=== PATIENT | male | born 1955 | race Asian ===

== ENCOUNTER → 2019-12-22 07:52 | Outpatient (CLI) | payer BC, SELFPAY ==
--- NOTE | ~2019-12-22 | US_ITS ---
EXAMINATION: US abdomen complete EXAM DATE: 12/22/2019 08:23 INDICATION: Gallbladder polyp, hepatic steatosis. TECHNIQUE: Multiple grayscale and Doppler images of the complete abdomen were obtained (by a technolo gist who performed the scan) and subsequently reviewed. There is no prior study for comparison. FINDINGS: The abdominal aorta is normal in caliber. Visualized portion IVC is patent. The pancreatic head a nd body are normal in appearance. The pancreatic tail is not visualized. The liver has normal echogenicity and contour. There are no focal liver lesions identified. There is no evidence of intrahepatic biliary duct dilation. Portal venous flow was seen in the hepatopedal , normal direction and has normal Doppler waveform. Common bile duct measures 5 mm, which is normal. The gallbladder wall is normal in thickness, with ex pected amount of distention. No sonographic evidence of pericholecystic fluid. There is a gallbladd er polyp measuring 7 x 6 x 6 mm. Technologist performing exam reports patient did not demonstrate so nographic Negro's sign. Please note that this sign is less reliable in patients who have received p ain medication. Right kidney: There is normal contour and echogenicity. It measures 11.9 x 5.3 x 6.1 centimeters. There are no focal renal lesions identified. There is no hydronephrosis. Left kidney: There is normal contour and echogenicity. It measures 10.8 x 6.0 x 6.9 centimeters. Th ere is a 1.5 cm exophytic cyst. There is no hydronephrosis. The spleen measures 8.5 centimeters and is morphologically normal. IMPRESSION: Small gallbladder polyp most likely benign; consider 6-12 month follow-up ultrasound. Reviewed, dictated and finalized at location A. K MACHINE OPERATOR IMPRESSION: Small gallbladder polyp most likely benign; consider 6-12 month fol low-up ultrasound.
== END ==
PROVIDERS: PCP Emergency Medicine; Visit Provider Emergency Medicine
DX: R91.1 Solitary pulmonary nodule (principal); K76.0 Fatty (change of) liver, not elsewhere classified; K82.4 Cholesterolosis of gallbladder
CPT/HCPCS: 76700

== ENCOUNTER → 2020-10-11 08:28 | Outpatient (CLI) | payer BC, SELFPAY ==
--- NOTE | ~2020-10-11 | US_ITS ---
EXAMINATION: US soft tissue head and neck EXAM DATE: 10/11/2020 09:18 INDICATION: Lymphadenopathy . TECHNIQUE: Multiple grayscale and Doppler images of the neck soft tissue were obtained (by a technolo coco who performed the scan) and subsequently reviewed. There is no prior study for comparison. FINDINGS: There are internal jugular chain lymph nodes which are within normal size limits, largest on the righ t side measuring 1.6 x 0.5 x 1.1 cm. Probably reactive. No other mass identified. IMPRESSION: 1. Internal jugular chain lymph nodes within normal size limits. Reviewed, dictated and finalized at location B. RPRISE RESOURCE PLANNING CONSULTANT
--- NOTE | ~2020-10-11 | US_ITS ---
EXAMINATION: US abdomen limited EXAM DATE: 10/11/2020 09:18 INDICATION: Cholesterolosis of gallbladder. TECHNIQUE: Multiple grayscale and Doppler images of the abdomen right upper quadrant were obtained (b y a technologist who performed the scan) and subsequently reviewed. There is no prior study for jennifer ortega. FINDINGS: The pancreatic head and body are normal in appearance. The pancreatic tail is not visualized. The l iver has normal echogenicity and contour. There are no focal liver lesions identified. There is no evidence of intrahepatic biliary duct dilation. Portal venous flow was seen in the hepatopedal, nor mal direction and has normal Doppler waveform. No right-sided hydronephrosis. Right renal parenchyma l calcification versus kidney stone. Common bile duct measures 5 mm, which is normal. The gallbladder wall is normal in thickness, with ex pected amount of distention. No sonographic evidence of pericholecystic fluid. There is cholelithia sis. There is a small gallbladder polyp measuring 5 x 6 mm, unchanged compared to prior study consist ent with benign histology. Technologist performing exam reports patient did not demonstrate sonograph ic Negro's sign. Please note that this sign is less reliable in patients who have received pain med ication. IMPRESSION: 1. Small gallbladder polyp unchanged. 2. Right renal cortical calcification versus nephrolithiasis. Reviewed, dictated and finalized at location B. T MANAGER
== END ==
PROVIDERS: PCP Emergency Medicine; Visit Provider Emergency Medicine
DX: K82.4 Cholesterolosis of gallbladder (principal); R59.1 Generalized enlarged lymph nodes
CPT/HCPCS: 76536; 76705

== ENCOUNTER → 2022-05-17 07:57 | Outpatient (CLI) | payer BC, SELFPAY ==
--- NOTE | ~2022-05-17 | US_ITS ---
EXAMINATION: US thyroid DATE: 05/17/2022 08:49 INDICATION: Thyroid nodule TECHNIQUE: Multiple ultrasound images of the thyroid were obtained. COMPARISON: 10/11/2020 FINDINGS: The right thyroid lobe measures 5.2 x 1.8 x 1.9 cm. The left thyroid lobe measures 4.3 x 1.6 x 1.9 c m. There are a few subcentimeter wider than tall hypoechoic solid nodules with smooth margins (TI-RA DS 4, moderately suspicious , FNA if >=1.5 cm, annual followup is >=1 cm) in the left and right thyro id lobes the largest measuring 7 mm in maximal diameter. There is also a 7 mm more hypoechoic left th yroid nodule with eccentric single echogenic focus (TI-RADS 5, highly suspicious , FNA if >=1.0 cm, a nnual followup is >0.5 cm). There is normal echotexture, echogenicity and vascular flow throughout th e surrounding thyroid gland. IMPRESSION: 1. Multiple subcentimeter bilateral thyroid nodules. Recommend one-year follow-up for the 7 mm TI RAD S 5 left thyroid nodule. Reviewed, dictated and finalized at location A. IMPRESSION: 1. Multiple subcentimeter bilateral thyroid nodules. Recommend one-year follow- up for the 7 mm TI RADS 5 left thyroid nodule.
== END ==
PROVIDERS: PCP Emergency Medicine; Visit Provider Emergency Medicine
DX: E04.2 Nontoxic multinodular goiter (principal)
CPT/HCPCS: 76536

== ENCOUNTER → 2022-06-29 10:13 | Outpatient (CLI) | payer BC, SELFPAY ==
--- NOTE | ~2022-06-29 | XR_ITS ---
XR hip LT min 2V DATE: 06/29/2022 10:46 INDICATION: Left hip pain TECHNIQUE: AP and lateral views COMPARISON: None FINDINGS: Mild left hip osteoarthritis. No fracture or dislocation, avascular necrosis or bone destru ction of the left hip. The pubic symphysis and left sacroiliac joint are intact. IMPRESSION: Mild left hip osteoarthritis Reviewed, dictated and finalized at location B.
== END ==
PROVIDERS: PCP Emergency Medicine; Visit Provider Emergency Medicine
DX: M16.12 Unilateral primary osteoarthritis, left hip (principal)
CPT/HCPCS: 73502

== ENCOUNTER → 2023-01-03 07:54 | Outpatient (CLI) | payer BC, SELFPAY ==
--- NOTE | ~2023-01-03 | US_ITS ---
EXAMINATION: US right upper quadrant DATE: 01/03/2023 08:26 INDICATION: Right-sided abdominal pain TECHNIQUE: Multiple grayscale and Doppler ultrasound images of the abdomen were obtained. COMPARISON: 10/11/2020 FINDINGS: The head and body of the pancreas are normal. The pancreatic tail is obscured by bowel gas. The liver is normal with normal echogenicity and echotexture. No surface nodularity. Normal hepatope haily flow in the main portal vein. There is a 6 mm gallbladder polyp. The gallbladder is otherwise nor mal with no abnormal wall thickening, pericholecystic fluid or stones. The normal common bile duct me asures 5 mm. There was no sonographic Negro sign. A 13 mm stone is noted in the upper pole of the ri ght kidney. No sonographic correlate is identified for the patient's right-sided abdominal pain. IMPRESSION: 1. No sonographic correlate for the patient's symptoms. Reviewed, dictated and finalized at location L. LCHAIR VAN DRIVER
== END ==
DX: R10.31 Right lower quadrant pain (principal)
CPT/HCPCS: 76705

== ENCOUNTER → 2023-03-26 14:21 | Outpatient (CLI) | payer BC, SELFPAY ==
--- NOTE | ~2023-03-26 | XR_ITS ---
XR hip LT min 2V 03/26/2023 14:52 Indication: Left hip pain Procedure: 2 views left hip Comparison: 06/29/2022 Findings: No fracture, subluxation or dislocation. No significant soft tissue abnormality. No foreign bodies. There is mild osteoarthritis of the left hip, unchanged. Impression: 1: No acute bone or joint abnormality. 2: Mild osteoarthritis. Reviewed, dictated and finalized at location L. Impression: 1: No acute bone or joint abnormality. 2: Mild osteoarthritis.
--- NOTE | ~2023-03-26 | XR_ITS ---
EXAM: XR lumbar spine 2-3V DATE: 03/26/2023 14:52 HISTORY: Lt HIP PAIN x several months w/o injury . COMPARISON: None available. FINDINGS: Decreased mineralization. 5 nonrib-bearing lumbar-type vertebral bodies. Pedicles intact. N ormal vertebral body alignment. Mild concave superior and inferior endplate deformities at multiple l evels, as can be seen with osteoporosis. Multilevel mild disc space narrowing and marginal osteophyto sis. Multilevel moderate facet sclerosis and hypertrophy in the lower lumbar spine. No fracture or di slocation. Aortic calcification without evident aneurysm. IMPRESSION: Mild multilevel degenerative disc disease. Moderate facet arthropathy in the lower lumbar spine. Osteopenia, with concave endplate deformities, consider bone density evaluation. Reviewed, dictated and finalized at location K. IMPRESSION: Mild multilevel degenerative disc disease. Moderate facet arthropat hy in the lower lumbar spine. Osteopenia, with concave endplate deformities, co nsider bone density evaluation.
--- NOTE | ~2023-03-26 | XR_ITS ---
AP and oblique views of the bilateral SI joints CLINICAL HISTORY: Hip pain FINDINGS: Bilateral SI joints are unremarkable. No degenerative, erosive, or sclerotic change. Bilate ral hip joints also appear unremarkable. Soft tissues are unremarkable. IMPRESSION: Unremarkable exam. Reviewed, dictated and finalized at location . IMPRESSION: Unremarkable exam.
== END ==
PROVIDERS: PCP Emergency Medicine; Visit Provider Emergency Medicine
DX: M16.12 Unilateral primary osteoarthritis, left hip (principal); M51.36 Other intervertebral disc degeneration, lumbar region
CPT/HCPCS: 72100; 72202; 73502

== ENCOUNTER → 2023-05-07 09:52 | Outpatient (CLI) | payer BC, SELFPAY ==
--- NOTE | ~2023-05-07 | US_ITS ---
Thyroid ultrasound. Clinical History: Thyroid nodule COMPARISON: 05/17/2022 Findings: Real-time sonography of the thyroid gland was performed. The right lobe measures 4.3 x 1.9 x 1.9 cm. The left lobe measures 3.8 x 1.7 x 2.0 cm. The isthmus is 3 mm in AP diameter. There are multiple small hypoechoic thyroid nodules bilaterally. Largest is at the right lower pole m easuring 8 mm. Impression: Multiple subcentimeter thyroid nodules, most consistent with multinodular goiter. The most suspicious left-sided thyroid lobe nodule from prior exam is not clearly appreciated on the current exam, or el se decreased in size. Reviewed, dictated and finalized at location M. Impression: Multiple subcentimeter thyroid nodules, most consistent with multinodular goite r. The most suspicious left-sided thyroid lobe nodule from prior exam is not cl early appreciated on the current exam, or else decreased in size.
== END ==
PROVIDERS: PCP Emergency Medicine; Visit Provider Emergency Medicine
DX: E04.2 Nontoxic multinodular goiter (principal)
CPT/HCPCS: 76536